=== PATIENT | male | born 1970 | race Caucasian/White ===

== ENCOUNTER 2023-06-06 07:56 | Outpatient (CLI) | payer BC, SELFPAY | END 2023-06-06 07:57 | disposition home or self-care (01) | PROVIDERS: PCP Family Medicine; Visit Provider Family Medicine | DX: E78.5 Hyperlipidemia, unspecified (principal); Z13.1 Encounter for screening for diabetes mellitus; Z13.0 Encounter for screening for diseases of the blood and blood-forming organs and certain disorders involving the immune mechanism; Z12.5 Encounter for screening for malignant neoplasm of prostate | CPT/HCPCS: 80048; 80061; 84153 ==

== ENCOUNTER 2023-06-23 12:17 | Outpatient (CLI) | payer BC, SELFPAY ==
--- NOTE | 2023-06-23 13:13 | W.ANESCHARGE ---
Anesthesia Charges Start Date/Time Anesthesia Start Date: 06/23/23 Anesthesia Start Time: 13:15 Stop Date/Time Anesthesia Stop Date: 06/23/23 Anesthesia Stop Time: 13:37
--- NOTE | 2023-06-23 13:38 | W.ANESCHARGE ---
Anesthesia Charges Start Date/Time Anesthesia Start Date: 06/23/23 Anesthesia Start Time: 13:15 Stop Date/Time Anesthesia Stop Date: 06/23/23 Anesthesia Stop Time: 13:37
== END 2023-06-23 12:18 | disposition home or self-care (01) ==
LOC: OP CLINIC 12:18
PROVIDERS: PCP Family Medicine; Visit Provider Internal Medicine
DX: Z12.11 Encounter for screening for malignant neoplasm of colon (principal); K63.5 Polyp of colon
CPT/HCPCS: 45380; 811; 88305; J2704

== ENCOUNTER 2025-02-28 11:08 | Outpatient (CLI) | payer BC, SELFPAY | END 2025-02-28 11:09 | disposition home or self-care (01) | PROVIDERS: PCP Family Medicine; Visit Provider Family Medicine | DX: E78.5 Hyperlipidemia, unspecified (principal); Z12.5 Encounter for screening for malignant neoplasm of prostate; Z13.1 Encounter for screening for diabetes mellitus; Z13.0 Encounter for screening for diseases of the blood and blood-forming organs and certain disorders involving the immune mechanism | CPT/HCPCS: 80048; 80061; G0103 ==

== ENCOUNTER 2025-06-26 11:14 | Emergency (ER) | payer BC, SELFPAY ==
--- OUTSIDE RECORDS SUMMARY | 2025-06-26 11:16 | XMS_ITS | Clinical Summary ---
Author Organization [facility] Address [address] [place] [id number] Care Team Providers Care Bobcat Operator Name Role Phone Clinic, [facility] Primary Counts include 234 beds at the [facility] Provider Allergies No known active allergies Medications atorvastatin (LIPITOR) 20 MG tablet Take 20 mg by mouth At Bedtime Active citalopram (CELEXA) 40 MG tablet Take 40 mg by mouth daily Active ketorolac (TORADOL) 10 MG tablet Take 10 mg by mouth 4 times daily as needed for moderate pain Active ondansetron (ZOFRAN) 4 MG tablet Take 4 mg by mouth every 6 hours as needed for nausea Active tamsulosin (FLOMAX) 0.4 MG capsule Take 0.4 mg by mouth daily Active ibuprofen (ADVIL/MOTRIN) 800 MG tablet Take 800 mg by mouth 3 times daily as needed for moderate pain Active MELATONIN PO Take 24 mg by mouth Active Vitamin D3 (CHOLECALCIFERO L) 125 MCG (5000 UT) tablet Take 1 tablet by mouth daily Active ranitidine (ZANTAC) 75 MG tablet Take 75 mg by mouth 2 times daily Active HYDROcodone-thelma taminophen (NORCO) 5-325 MG tabletIndicatio ns:Post-operati ve state Take 1-2 tablets by mouth every 6 hours as needed for moderate to severe pain 10 tablet 04/22/2021 Active Social History Tobacco Use Types Packs/Day Years Used Date Smoking Tobacco: Every Day Cigarettes Smokeless Tobacco: Never Alcohol Use Standard Drinks/Week Comments Never 0 (1 standard drink = 0.6 oz pur e alcohol) Adolescent Education Answer Date Record ed Getting School Help Needed Not on file 05/06 Sex and Gender Information Value Date Recorded Sex Assigned at Not on file Legal Sex Male 11:14 AM CDT Gender Identity Not on file Sexual Orientation Not on file Last Filed Vital Signs Vital Sign Reading Time Taken Comments Blood Pressure 133/88 04/22/2021 11:30 AM CDT Pulse 65 04/22/2021 11:30 AM CDT Temperature 35.9 C (96.6 F) 04/22/2021 11:00 AM CDT Respiratory Rate 12 04/22/2021 11:30 AM CDT Oxygen Saturation 97% 04/22/2021 11:30 AM CDT Inhaled Oxygen Concentration - - Weight 93.4 kg (206 lb) 04/22/2021 8:21 AM CDT Height 182.9 cm (6') 04/22/2021 8:21 AM CDT Body Mass Index 27.94 04/22/2021 8:21 AM CDT Plan of Treatment Not on file Medical Devices Implanted Type Area Mechanical Developer Prover Device Identifier Shelf Expiration Date Model / Serial / Lot Stent Ureteral Polaris Ultra [id number] - [id number] Implanted:Qty : 1 on 04/22/2021 by Crow Valdez MD at [facility] Stent Left: Urethra [employer] [id number] 02/18/2024 [id number] Insurance BLUE [employer]US Care Teams Bobcat Operator Relationship Specialty Start Date End Date Clinic, [place] [address] [place] [address] [facility] - General 04/22/21
--- OUTSIDE RECORDS SUMMARY | 2025-06-26 11:16 | XMS_ITS | Clinical Summary ---
Author Organization [facility] Address [address] [place] [address] Care Team Providers Care Hog Cooler Name Role Phone Unknown, Doctor Primary Care Provider Unavailabl e Allergies No known active allergies Medications tamsulosin (FLOMAX) 0.4 mg capsule 1 Active ondansetron (ZOFRAN) 4 mg tablet 4 MG BY MOUTH EVERY SIX HOURS NEEDED 1 Active ketorolac (TORADOL) 10 mg tablet Take 10 mg by mouth 4 times daily if needed. 1 Active HYDROcodone-ac etaminophen (NORCO) 5-325 mg per tablet 1 Active citalopram (CELEXA) 40 mg tablet 40 MG BY MOUTH DAILY 1 Active atorvastatin (LIPITOR) 20 mg tablet 20 MG BY MOUTH AT BEDTIME 1 Active cholecalcifero l (Vitamin D) 1,000 unit tablet Take 1 Tablet (1,000 units) by mouth once daily. 0 1 Active ascorbic acid extended release (Vitamin C) 1,000 mg tablet Take 1 Tablet (1,000 mg) by mouth once daily. 0 1 Active ondansetron (ZOFRAN) 8 mg tabletIndicati ons:Left ureteral stone Take 1 Tablet (8 mg) by mouth every 8 hours if needed for Nausea/Vomiting. 12 Tablet 1 Active HYDROcodone-ac etaminophen (NORCO) 5-325 mg per tabletIndicati ons:Kidney stone Take 1 Tablet by mouth every 6 hours if needed for Pain. Max acetaminophen dose: 4000 mg in 24 hrs. 15 Tablet 1 Active erythromycin ophthalmic ointment 0.5%Indication s:Abrasion of right cornea, initial encounter Apply 1 Strip to right eye 6 times daily. 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 Gender Identity Not on file Sexual Orientation Not on file Obstetrics History Last Filed Vital Signs Vital Sign Reading Time Taken Comments Blood Pressure 128/72 11/01/2024 3:27 PM CDT Pulse 88 11/01/2024 3:27 PM CDT Temperature 36.9 C (98.4 F) 11/01/2024 3:27 PM CDT Respiratory Rate 18 11/01/2024 3:27 PM CDT Oxygen Saturation 98% 11/01/2024 3:27 PM CDT Inhaled Oxygen Concentration - - Weight 101.6 kg (224 lb) 11/01/2024 3:27 PM CDT Height - - Body Mass Index - - Plan of Treatment Health Maintenance Due Date Last Done Comments Tetanus booster 10/14/1983 Depression screening for age 12+ 1984 HIV for age 15-65 10/14/1987 BMI (ht and wt on same day) for age 18+ 1990 Hepatitis C screening for age 18-79 1990 Hepatitis B series for 19+ (1 of 3 - 19+ 3-dose series ) 10/14/1991 Colonoscopy through age 75 2017 Lipids for age 45-75 2017 Pneumococcal series for age 50+ (1 of 1 - PCV) 023 Zoster (shingles) series for age 50+ (1 of 2) 10/14/19 23 Influenza Vaccine (#1) 2025 RSV vaccine for adults or pr egnancy (1 - 1-dose 75+ series) 10/14/[address] [place] [address] [employer] [place] [employer] Care Teams Hog Cooler Relationship Specialty Start Date End Date Unknown, Doctor . PCP - General 11/15/05
[2025-06-26 11:20] VITALS: BP 126/78; PULSE 55; RESP 18; TEMP 36.6; O2SAT 97
--- NOTE | 2025-06-26 11:40 | ED.GENADULT ---
HPI - General Adult General Date Seen: 06/26/25 Chief complaint: Eye Problems Stated complaint: R eye inflammation Time Seen by Provider: 06/26/25 11:25 History of Present Illness HPI narrative: Patient is a 54-year-old gentleman here with his for evaluation of redness of his right eye. He says he has had a little bit of a cough the past few days and presumes he burst blood vessel. His eye feels little bit itchy but that is not unusual for him. No eye pain or photophobia. He does note that his vision has been declining little bit and he is going to see his eye clinic about that. Feels like his vision is little more blurry today. He is not anticoagulated. 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 has smoked 30 years Has 3 alcohol drink's a week What is your current living situation?: I presently have a place to live Problems where you live: no known problems In the past 12 months, utilities in danger of being shut off: no In past 12 months, lack of transportation kept you from medical appts, meetings, work, or getting things needed for daily living: no In the past 12 mos, have been you worried that your food would run out before you had money to buy more?: never true In the past 12 mos, the food you bought just didn't last and you didn't have money to buy more?: never true Physical activity type: weight lifting Smoking Status: Current every day smoker How often do you have a drink containing alcohol: 2-3 times a week AUDIT-C Alcohol total score: 3 Non-prescribed substance use: denies use Are you now , , , , never or living with a partner: Social isolation score (0-1 are the most socially isolated patients): 1 How often does anyone, including family, friends and others, physically hurt you: never How often does anyone, including family, friends and others, insult or talk down to you: never How often does anyone, including family, friends and others, threaten you with harm: never How often does anyone, including family, friends and others, scream or curse at you: never Gender Identity: male Are you currently sexually active: Yes Exam Narrative: Exam Narrative: Vital signs reviewed In general, alert, well-appearing male. Eyes: Subconjunctival noted medially on the left eye. Pupils equal reactive, red reflex normal. Visual acuity 20 40 on the left, 20 25 on the right. Const: Vital Signs, click to edit/add: Vital Signs - 24 hr 06/26/25 11:20 Temperature 97.9 F Pulse Rate [Right Pulse Oximeter] 55 L Respiratory Rate 18 Blood Pressure [Ri ght Upper Arm] 126/78 Pulse Oximetry 97 Oxygen Delivery Me thod Room Air Course Course ED Course: Patient presents with subconjunctival hemorrhage, diagnosis reviewed. No specific therapies needed. Encouraged him to follow up with his eye clinic if he feels that his vision has deteriorated. Vital Signs Vital signs: Initial Vital Signs Temperature 97.9 F 06/26/25 11:20 Temperature Source Temporal Artery Scan 06/26/25 11:20 Pulse Rate 55 L 06/26/25 11:20 Pulse Rhythm Regular 06/26/25 11:20 Pulse Strength 3+ Normal 06/26/25 11:20 Respiratory Rate 18 06/26/25 11:20 Blood Pressure 126/78 06/26/25 11:20 Blood Pressure Mean 94 06/26/25 11:20 Blood Pressure Position Sitting 06/26/25 11:20 Pulse Oximetry 97 06/26/25 11:20 Oxygen Delivery Method Room Air 06/26/25 11:20 Vital Signs Temperature 97.9 F 06/26/25 11:20 Pulse Rate 55 L 06/26/25 11:20 Respiratory Rate 18 06/26/25 11:20 Blood Pressure 126/78 06/26/25 11:20 Pulse Oximetry 97 06/26/25 11:20 Oxygen Delivery Method Room Air 06/26/25 11:20 Temperature 97.9 F 06/26/25 11:20 Pulse Rate 55 L 06/26/25 11:20 Respiratory Rate 18 06/26/25 11:20 Blood Pressure 126/78 06/26/25 11:20 Pulse Oximetry 97 06/26/25 11:20 Oxygen Delivery Method Room Air 06/26/25 11:20 Discharge Plan Discharge Clinical Impression: Subconjunctival hemorrhage Patient Disposition: Home, Self-Care Condition: Stable Additional Instructions: Symptoms will resolve with time. See your eye doctor as needed for concerns about your vision. Prescriptions: No Action atorvastatin 20 mg tablet See Rx Instructions .ROUTE .COMPLEX Qty: 90 3RF Dose Instruction: 20 MG BY MOUTH AT BEDTIME Rx Instructions: 20 MG BY MOUTH AT BEDTIME citalopram 40 mg tablet 40 mg PO DAILY Qty: 90 3RF Follow Up/Referrals: Adrian Jerry MD [Primary Care Provider, Family Practice] Stand Alone Forms: [facility] Info Instructions
--- OUTSIDE RECORDS SUMMARY | 2025-06-26 11:47 | XMS_ITS | Data Portability ---
Author Organization [facility], [facility] Address [address] [place] [address] Assessment No assessment recorded. Plan of Treatment Reminders Order Date Submit Date Provider Last Modified By Organization Details Last Modified Time Details Appointments None recorded . Lab kidney stone, 24-hour urine panel 021 04/29/20 21 [email or web address] [address] [facility], [address], [place], [address], 09:41:25 Referral None recorded . Procedures None recorded . Surgeries None recorded . Imaging None recorded . Medication Orders None recorded . Patient TargetsNo targets recorded. Patient InstructionsNo instructions recorded. Reason for Referral None Reported. Results Created Date Observation Date Name Description Value Unit Range Abnormal Flag Note LastModifiedBy Organization Detail LastModifiedTime Result Notes None recorded. Procedures Surgical History Date Name Laterality Status Provider Name and Address Organization Details Recorded Time 04/29/20 21 Cystoscopy with foreign body/stent removal completed Crow Valdez MD [address], [place], [address], [facility] 05/02/2021 20:52:24 04/29/20 21 Keflex post Cysto completed Maira Renteria [facility] 04/29/2021 09:47:55 colonoscopy completed Laina Cardenas [facility] 04/29/2021 09:43:13 Imaging Results None recorded. Procedure Notes None recorded. Medical Equipment None Reported. Allergies No known drug allergies Medications Name Sig Start Date Stop Date Status Note LastModified by Organization Details LastModified Time atorvastati n 20 mg tablet 20 MG BY MOUTH AT BEDTIME active Not Available Not Available No t Available citalopram 40 mg tablet 40 MG BY MOUTH DAILY active Not Available Not Available No t Available hydrocodone 5 mg-acetamin ophen 325 mg tablet TAKE 1-2 TABLETS BY MOUTH EVERY SIX HOURS NEEDED active Not Available Not Available No t Available ondansetron HCl 8 mg tablet active Not Available Not Available Not Available ondansetron HCl 4 mg tablet 4 MG BY MOUTH EVERY SIX HOURS NEEDED active Not Available Not Available No t Available ketorolac 10 mg tablet TAKE ONE TABLET BY MOUTH FOUR TIMES DAILY NEEDED active Not Available Not Available No t Available tamsulosin 0.4 mg capsule TAKE 1 CAPSULE BY MOUTH DAILY active Not Available Not Available No t Available COVID-19 test specimen collection TEST DIRECTED 04/29 completed Not Available Not Available Not Available Vitals Date Recorded Body height Body mass index (BMI) Body weight Provider Name and Address Organization Details Last Updated DateTime 04/29/2021 182.88 cm 27.9 kg/m2 95065.03 g Laina Cardenas [facility] 04/29/2021 09:41:10 Social History Question Answer Notes LastModified by Organizat ion Details LastModified Time Tobacco Smoking Status Current Every Day Smoker Laina Cardenas [facility], [facility] 04/29/2021 09:42:59 What Was The Date Of Your Most Recent Tobacco Screening? 04/29/2021 [email or web address] Information not available 04/29/2021 Sex: Unknown Functional Status None recorded. Mental Status None recorded. Family History Relationship Description Onset Age of this Age Resolved Age Notes LastModified by Organization Details LastModified Time Father No current problems or disability [email or web address] Not available 09:42:47 Mother No current problems or disability [email or web address] Not available 09:42:47 Medical History Condition Response Other N High Blood Pressure N Kidney Stones Y Depression N Sexually Transmitted Infection N Cancer N Bleeding Disorder N Lung Disease N GERD/Acid Reflux N High Cholesterol N Diabetes N Heart Disease N Past Encounters Encounter ID Performer Location Encounter Start Date Encounter Closed Date Diagnosis/Indication Diagnosis SNOMED-CT Code Diagnosis ICD10 Code Diagnosis IMO Codes Diagnosis Note [id number] Crow Valdez MD [facility] [address] [place] [address] 04/29/2021 09:34:08 05/03/2021 09:51:02 Kidney stone 72702671 N20.0 1. Left ureteral stone- s/p Left ureterosco py with laser lithotrips y (04/22/21)- encourage fluid intake and Citrate- check 24 Hr urine study - assess risk factors for stone formation- Follow-up in 4-6 weeks to discuss results Health Concerns Section Related Observation LastModified by Organization Detai ls LastModified Time None Recorded Concern Status LastModified by Organization Details LastModified Time None Recorded Advance Directives Directive None Recorded Payers Insurance Date Sequence Insurance Name Policy Number Policy [place] Covered Member ID [place] Member ID Guarantor Name 04/21/2021 1 [employer] (PPO) [id number] David Agee [id number] David Agee 07/10/2021 1 [facility] [id number] David Agee [id number] David Agee Notes Date Note Type Note Provider Name and Address Organization Details Recorded Time 04/29/2021 text/html 50 yo male with no prior history of stones - developed Left flank pain in January. CT scan revealed a 5 mm stone in the Left ureter.- Left ureteroscopy with laser lithotripsy (04/22/21)- stone - 60% CaOX monohydrate, 20% CaOX dihydrate, 20% Calcium phosphate 04/29/21 - He presents today for Left ureteral stent removal. He reports moderate bladder and Left flank pain from the stent. He reports hematuria has resolved. CT scan (01/29/21) - Left - 5 mm stone (mid-ureter - L3) - no stones in either kidneyKUB (02/08/21) - Left - 3 mm stone (L3)KUB (03/15/21) - Left - 4 mm stone (in pelvis) Crow Valdez MD [address], [place], [address], [facility] 05/02/2021 20:52:59
== END 2025-06-26 11:45 | disposition home or self-care (01) ==
LOC: ED 11:45
PROVIDERS: Emergency Provider Emergency Medicine; PCP Family Medicine
DX: H11.31 Conjunctival hemorrhage, right eye (principal)
CPT/HCPCS: 99281; 99282; 99283